=== PATIENT | male | born 1950 | race African-American/Black ===

== ENCOUNTER 2016-03-06 11:15 | Inpatient (IN) | payer OTHER ==
[2016-03-06 11:45] VITALS: BMI 18.6
--- NOTE | 2016-03-06 13:48 | HP ---
CIWA Score - CIWA Score Nausea/Vomitin-Mild Nausea/No Vomiting Muscle Tremors: 4-Moderate,w/Arms Extend Anxiety: 4-Mod. Anxious/Guarded Agitation: 4-Moderately Restless Paroxysmal Sweats: 3 Orientation: 0-Oriented Tacttile Disturbances: 0-None Auditory Disturbances: 0-None Visual Disturbances: 0-None Headache: 1-Very Mild CIWA-Ar Total Score: 17 Admission ROS BHS - HPI Chief Complaint: I need help Allergies/Adverse Reactions: Allergies Allergy/AdvReac Type Severity Reaction Status Date / Time No Known Allergies Allergy Verified 03/06/16 12:52 History of Present Illness: pt is a 65yr old male with a history of alcohol dependence seeking detox for treatment. Exam Limitations: No Limitations - Ebola screening Have you traveled outside of the country in the last 21 days: No Have you had contact with anyone from an Ebola affected area: No Have you been sick,other than usual withdrawal symptoms: No Do you have a fever: No - Review of Systems Constitutional: Chills, Diaphoresis, Loss of Appetite, Night Sweats, Changes in sleep, Unintentional Wgt. Loss EENT: reports: Tearing, Nose Congestion Respiratory: reports: Cough Cardiac: reports: Lightheadedness GI: reports: Constipated, Diarrhea, Nausea, Poor Appetite, Poor Fluid Intake, Indigestion : reports: No Symptoms Reported Musculoskeletal: reports: Back Pain, Joint Pain Integumentary: reports: Flushing, Sweating Neuro: reports: Tingling, Tremors Endocrine: reports: Excessive Sweating, Flushing, Intolerance to Cold, Intolerance to Heat Hematology: reports: No Symptoms Reported Psychiatric: reports: Judgement Intact, Mood/Affect Appropiate, Orientated x3, Agitated, Anxious Other Systems: Reviewed and Negative Patient History - Patient Medical History Hx Anemia: No Hx Asthma: No Hx Chronic Obstructive Pulmonary Disease (COPD): No Hx Cancer: No Hx Cardiac Disorders: No Hx Congestive Heart Failure: No Hx Hypertension: No Hx Hypercholesterolemia: No Hx Pacemaker: No HX Cerebrovascular Accident: No Hx Seizures: No Hx Dementia: No Hx Diabetes: No Hx Gastrointestinal Disorders: No Hx Liver Disease: No Hx Genitourinary Disorders: No Hx Sexually Transmitted Disorders: No Hx Renal Disease (ESRD): No Hx Thyroid Disease: No Hx Human Immunodeficiency Virus (HIV): No (negative) Hx Hepatitis C: No (negative) Hx Depression: Yes Hx Suicide Attempt: No Hx Bipolar Disorder: No Hx Schizophrenia: No Other Medical History: insomnia - Patient Surgical History Past Surgical History: No Hx Neurologic Surgery: No Hx Cataract Extraction: No Hx Cardiac Surgery: No Hx Lung Surgery: No Hx Breast Surgery: No Hx Breast Biopsy: No Hx Abdominal Surgery: No Hx Appendectomy: No Hx Cholecystectomy: No Hx Genitourinary Surgery: No Hx Section: No Hx Orthopedic Surgery: No Anesthesia Reaction: No - PPD History Previous Implant?: Yes (+PPD history) Documented Results: Positive w/o proof Implanted On Prior [facility] Admission?: Yes PPD to be Administered?: No - Reproductive History Patient is a Female of Child Bearing Age (11 -55 yrs old): No - Smoking Cessation Smoking history: Current every day smoker Have you smoked in the past 12 months: Yes Aproximately how many cigarettes per day: 10 Cigars Per Day: 0 Hx Chewing Tobacco Use: No Initiated information on smoking cessation: Yes 'Breaking Loose' booklet given: 03/06/16 - Substance & Tx. History Hx Alcohol Use: Yes Hx Substance Use: No Substance Use Type: Alcohol Hx Substance Use Treatment: Yes - Substances Abused Alcohol Route: Oral Frequency: Daily Amount used: 1 pint of Vodka Age of first use: 16 Date of Last Use: 03/05/16 Family Disease History - Family Disease History Family Disease History: Other: Brother (alcohol), Sister (alcohol) Admission Physical Exam BHS - Vital Signs Vital Signs: Vital Signs - 24 hr 03/06/16 11:43 Temperature 98.1 F Pulse Rate 106 H Respiratory 18 Rate Blood Pressure 129/76 - Physical General Appearance: Yes: Appropriately Dressed, Moderate Distress, Thin, Tremorous, Irritable, Sweating, Anxious HEENTM: Yes: Hearing grossly Normal, Normal Voice Respiratory: Yes: Lungs Clear, Normal Breath Sounds, No Respiratory Distress, Crackles Neck: Yes: No masses,lesions,Nodules Breast: Yes: Within Normal Limits Cardiology: Yes: Regular Rhythm, Regular Rate, S1, S2 Abdominal: Yes: Normal Bowel Sounds, Non Tender, Soft Genitourinary: Yes: Within Normal Limits Back: Yes: Normal Inspection Musculoskeletal: Yes: full range of Motion Extremities: Yes: Normal Capillary Refill, Normal Inspection, Non-Tender, Tremors Neurological: Yes: Fully Oriented, Alert, Normal Response Integumentary: Yes: Normal Color, Diaphoresis Lymphatic: Yes: Within Normal Limits - Diagnostic (1) Alcohol dependence with uncomplicated withdrawal Current Visit: Yes Status: Chronic (2) Nicotine dependence Current Visit: Yes Status: Chronic Qualifiers: Nicotine product type: cigarettes Substance use status: uncomplicated Qualified Code(s): F17.210 - Nicotine dependence, cigarettes, uncomplicated (3) Depression Current Visit: Yes Status: Suspected Qualifiers: Depression Type: dysthymia Qualified Code(s): F34.1 - Dysthymic disorder (4) Pain of right hip joint Current Visit: Yes Status: Chronic Comment: arthritis of the right hip Cleared for Admission S - Detox or Rehab [facility] Level of Care: Medically Managed Detox Regimen/Protocol: Librium S Breath Alcohol Content Breath Alcohol Content: 0 Urine Drug Screen - Results Drug Screen Negative: No Urine Drug Screen Results: BZO-Benzodiazepines
[2016-03-06] MEDS ORDERED: NICOTINE POLACRILEX 4 MG GUM BUC PRN (13:54)
[2016-03-06] MEDS ORDERED: MENTHOL/PHENOL 1 EACH UD MM PRN (13:54)
[2016-03-06] MEDS ORDERED: LOPERAMIDE HCL 2 MG CAPSULE PO PRN (13:54)
[2016-03-06] MEDS ORDERED: MAGNESIUM HYDROX 2400MG/30ML ORAL SUSPENSION 30 ML CUP PO PRN (13:54)
[2016-03-06] MEDS ORDERED: hydrOXYzine PAMOATE 50 MG CAPSULE (FP) PO PRN (13:54)
[2016-03-06] MEDS ORDERED: MAGNESIUM CITRATE 300 ML BOTTLE PO PRN (13:54)
[2016-03-06] MEDS ORDERED: chlordiazePOXIDE HCL 25 MG CAPSULE PO PRN (13:54)
[2016-03-06] MEDS ORDERED: P-EPHED 60MG/TRIPROLIDI 2.5MG TABLET PO PRN (13:54)
[2016-03-06] MEDS ORDERED: MAG HYDROX/AL HYDROX/SIMETH 30 ML UNIT-DOSE CUP PO PRN (13:54)
[2016-03-06] MEDS ORDERED: ACETAMINOPHEN 325 MG TABLET (FP) PO PRN (13:54)
[2016-03-06] MEDS ORDERED: IBUPROFEN 400 MG TABLET (FP) PO PRN (13:54)
[2016-03-06] MEDS ORDERED: guaiFENesin/D-METHORPHAN HB 10 ML UNIT-DOSE CUPS PO PRN (13:54)
[2016-03-06] MEDS ORDERED: chlordiazePOXIDE HCL 25 MG CAPSULE PO ONE (15:45)
[2016-03-06] MEDS: chlordiazePOXIDE HCL 25 MG CAPSULE PO SCH ×2 (17:04→22:33)
[2016-03-06 20:43] LABS: URINE APPEARANCE CLEAR; URINE BILIRUBIN NEGATIVE (NEGATIVE); URINE BLOOD NEGATIVE (NEGATIVE); URINE COLOR AMBER; URINE GLUCOSE (UA) NEGATIVE (NEGATIVE); URINE KETONE TRACE (NEGATIVE); URINE LEUK ESTERASE NEGATIVE (NEGATIVE); URINE NITRITE NEGATIVE (NEGATIVE); URINE UROBILINOGEN 2.0 E.U/dl E.U./dl (0.2-1.0)
[2016-03-06 20:46] LABS: URINE PROTEIN 1+ (NEGATIVE)
[2016-03-06 20:48] LABS: GRANULAR CASTS 1 /lpf; URINE HYALINE CAST 1 /lpf; URINE MUCUS RARE; URINE RBC 1 /hpf (0-3); URINE WBC 6 /hpf (3-5)
[2016-03-06] MEDS: THIAMINE HCL 100 MG TABLET (FP) PO SCH (22:33)
[2016-03-07] MEDS: chlordiazePOXIDE HCL 25 MG CAPSULE PO SCH ×4 (05:37→22:31)
--- NOTE | 2016-03-07 09:03 | CONSULT ---
[facility] Psychiatric Consult - Data Date of interview: 03/07/16 Admission source: [facility] Identifying data: New admission to [facility] for this 65 y/o AA male seeking detox treatment on for alcohol dependence.Patient is single without children,domiciled,unemployed and supported on Social Security benefits. Substance Abuse History: - Smoking Cessation. Smoking history: Current every day smoker. Have you smoked in the past 12 months: Yes. Aproximately how many cigarettes per day: 10. Cigars Per Day: 0. Hx Chewing Tobacco Use: No. Initiated information on smoking cessation: Yes. 'Breaking Loose' booklet given : 03/06/16. - Substance & Tx. History. Hx Alcohol Use: Yes. Hx Substance Use : No. Substance Use Type: Alcohol. Hx Substance Use Treatment: Yes. - Substances Abused. Alcohol. Route: Oral. Frequency: Daily. Amount used: 1 pint of Vodka. Age of first use: 16. Date of Last Use: 03/05/16. Confirmed by patient. Medical History: Patient denies medical problems.He endorses good general health. Psychiatric History: Patient denies. Physical/Sexual Abuse/Trauma History: Patient denies. Additional Comment: Urine Drug Screen Results: BZO-Benzodiazepines.Noted. Mental Status Exam - Mental Status Exam Alert and Oriented to: Time, Place, Person Cognitive Function: Good Patient Appearance: Well Groomed Mood: Hopeful, Euthymic Affect: Appropriate, Normal Range Patient Behavior: Fatigued, Appropriate, Cooperative Speech Pattern: Clear, Appropriate Voice Loudness: Normal Thought Process: Goal Oriented Thought Disorder: Not Present Hallucinations: Denies Suicidal Ideation: Denies Homicidal Ideation: Denies Insight/Judgement: Fair Sleep: Poorly, Difficulty falling asleep Appetite: Good Muscle strength/Tone: Normal Gait/Station: Normal Psychiatric Findings - Problem List (Capac 1, 2,3) (1) Alcohol dependence with uncomplicated withdrawal Current Visit: Yes Status: Acute (2) Nicotine dependence Current Visit: Yes Status: Acute Qualifiers: Nicotine product type: cigarettes Substance use status: uncomplicated Qualified Code(s): F17.210 - Nicotine dependence, cigarettes, uncomplicated (3) Pain of right hip joint Current Visit: Yes Status: Acute Comment: arthritis of the right hip - Initial Treatment Plan Initial Treatment Plan: Psychoeducation.Detoxification in progress.Insomnia is addressed with benadryl 50 mg po prn at bedtime.Side effects/benefits discussed.Patient agrees with careplan.Observation.
[2016-03-07 10:24] LABS: MCH 35.4 pg (25.7-33.7); MCHC 33.8 g/dl (32.0-35.9); MEAN CELL VOLUME 104.7 fl (80-96); MEAN PLT VOLUME 8.5 fl (7.5-11.1); PLATELET COUNT 248 K/MM3 (134-434); RDW 16.4 % (11.9-15.9); WHITE BLOOD COUNT 7.3 K/mm3 (4.0-10.0)
[2016-03-07] MEDS: PRENATAL VITAMINS W/ FOLIC ACID TABLET (FP) PO SCH (10:33)
[2016-03-07] MEDS: NICOTINE 21 MG/24 HOURS TOPICAL PATCH TD SCH (10:34)
[2016-03-07] MEDS: CYANOCOBALAMIN 1,000 MCG TABLET (FP) PO SCH (10:34)
[2016-03-07 10:53] LABS: ALBUMIN 3.8 g/dl (3.4-5.0); ALK PHOS 93 U/L (45-117); ANION GAP 9 (8-16); BILIRUBIN,TOTAL 0.6 mg/dL (0.2-1.0); CALCIUM 9.3 mg/dL (8.5-10.1); CO2 30 mmol/L (21-32); GLUCOSE,RANDOM 140 mg/dL (74-106); SGOT/AST 41 U/L (15-37); SGPT/ALT 26 U/L (12-78); TOT PROT 7.5 g/dl (6.4-8.2)
--- NOTE | 2016-03-07 11:39 | PN ---
[facility] CIWA - CIWA Score Nausea/Vomitin-No Nausea/No Vomiting Muscle Tremors: 4-Moderate,w/Arms Extend Anxiety: 4-Mod. Anxious/Guarded Agitation: 4-Moderately Restless Paroxysmal Sweats: 1-Minimal Palms Moist Orientation: 0-Oriented Tacttile Disturbances: 3-Moderate Itch/Numb/Burn Auditory Disturbances: 0-None Visual Disturbances: 0-None Headache: 0-None Present CIWA-Ar Total Score: 16 BHS Progress Note (SOAP) Subjective: ANXIETY,TREMORS,FATIGUE. Objective: 03/07/16 11:38 Vital Signs Temperature 96.8 F L 03/07/16 09:53 Pulse Rate 103 H 03/07/16 09:53 Respiratory Rate 18 03/07/16 09:53 Blood Pressure 103/72 03/07/16 09:53 O2 Sat by Pulse Oximetry (%) Laboratory Last Values WBC 7.3 K/mm3 (4.0-10.0) 03/07/16 06:00 RBC 3.63 M/mm3 (4.00-5.60) L 03/07/16 06:00 Hgb 12.8 GM/dL (11.7-16.9) 03/07/16 06:00 Hct 38.0 % (35.4-49) 03/07/16 06:00 MCV 104.7 fl (80-96) H 03/07/16 06:00 MCHC 33.8 g/dl (32.0-35.9) 03/07/16 06:00 RDW 16.4 % (11.9-15.9) H D 03/07/16 06:00 Plt Count 248 K/MM3 (134-434) 03/07/16 06:00 MPV 8.5 fl (7.5-11.1) 03/07/16 06:00 Sodium 137 mmol/L (136-145) 03/07/16 06:00 Potassium 3.4 mmol/L (3.5-5.1) L 03/07/16 06:00 Chloride 98 mmol/L (98-107) 03/07/16 06:00 Carbon Dioxide 30 mmol/L (21-32) 03/07/16 06:00 Anion Gap 9 (8-16) 03/07/16 06:00 BUN 13 mg/dL (7-18) 03/07/16 06:00 Creatinine 1.0 mg/dL (0.7-1.3) D 03/07/16 06:00 Creat Clearance w eGFR > 60 (>60) 03/07/16 06:00 Random Glucose 140 mg/dL (74-106) H D 03/07/16 06:00 Calcium 9.3 mg/dL (8.5-10.1) 03/07/16 06:00 Total Bilirubin 0.6 mg/dL (0.2-1.0) 03/07/16 06:00 AST 41 U/L (15-37) H 03/07/16 06:00 ALT 26 U/L (12-78) 03/07/16 06:00 Alkaline Phosphatase 93 U/L (45-117) 03/07/16 06:00 Total Protein 7.5 g/dl (6.4-8.2) 03/07/16 06:00 Albumin 3.8 g/dl (3.4-5.0) 03/07/16 06:00 Urine Color Tisha 03/06/16 20:00 Urine Appearance Clear 03/06/16 20:00 Urine pH 5.0 (5.0-8.0) 03/06/16 20:00 Ur Specific [place] 1.027 (1.001-1.035) 03/06/16 20:00 Urine Protein 1+ (NEGATIVE) H 03/06/16 20:00 Urine Glucose (UA) Negative (NEGATIVE) 03/06/16 20:00 Urine Ketones Trace (NEGATIVE) H 03/06/16 20:00 Urine Blood Negative (NEGATIVE) 03/06/16 20:00 Urine Nitrite Negative (NEGATIVE) 03/06/16 20:00 Urine Bilirubin Negative (NEGATIVE) 03/06/16 20:00 Urine Urobilinogen 2.0 e.u/dl E.U./dl (0.2-1.0) 03/06/16 20:00 Ur Leukocyte Esterase Negative (NEGATIVE) 03/06/16 20:00 Urine RBC 1 /hpf (0-3) 03/06/16 20:00 Urine WBC 6 /hpf (3-5) 03/06/16 20:00 Ur Epithelial Cells Rare /hpf (FEW) 03/06/16 20:00 Hyaline Casts 1 /lpf 03/06/16 20:00 Granular Casts 1 /lpf 03/06/16 20:00 Urine Mucus Rare 03/06/16 20:00 K+ = 3.4 Assessment: 03/07/16 11:38 WITHDRAWAL SX Plan: CONTINUE DETOX KDUR 20 MEQ PO DAILY X 3 DAYS
--- NOTE | 2016-03-07 12:39 | EKG ---
Test Reason : Blood Pressure : / mmHG Vent. Rate : 095 BPM Atrial Rate : 095 BPM P-R Int : 106 ms QRS Dur : 080 ms QT Int : 350 ms P-R-T Axes : 060 049 009 degrees QTc Int : 439 ms SINUS RHYTHM WITH SHORT UT NONSPECIFIC T WAVE ABNORMALITY ABNORMAL ECG WHEN COMPARED WITH ECG OF 27-AUG-2008 17:18, NONSPECIFIC T WAVE ABNORMALITY NOW EVIDENT IN INFERIOR LEADS NONSPECIFIC T WAVE ABNORMALITY NOW EVIDENT IN ANTERIOR LEADS Confirmed by SHEYLA PASTOR MD ([id number]) on 03/07/2016 12:39:49 PM Referred By: Confirmed By:SHEYLA PASTOR MD
[2016-03-07] MEDS: POTASSIUM CHLORIDE TABS 20 MEQ TABLET.ER (FP) PO SCH (12:45)
[2016-03-07] MEDS: THIAMINE HCL 100 MG TABLET (FP) PO SCH (22:31)
[2016-03-07] MEDS: diphenhydrAMINE HCL 50 MG CAPSULE PO PRN (22:31)
[2016-03-08] MEDS: chlordiazePOXIDE HCL 25 MG CAPSULE PO SCH ×2 (05:49→10:33)
[2016-03-08] MEDS: CYANOCOBALAMIN 1,000 MCG TABLET (FP) PO SCH (10:33)
[2016-03-08] MEDS: POTASSIUM CHLORIDE TABS 20 MEQ TABLET.ER (FP) PO SCH (10:33)
[2016-03-08] MEDS: PRENATAL VITAMINS W/ FOLIC ACID TABLET (FP) PO SCH (10:33)
[2016-03-08] MEDS: NICOTINE 21 MG/24 HOURS TOPICAL PATCH TD SCH (10:33)
[2016-03-08] MEDS: chlordiazePOXIDE 5 MG CAPSULE PO SCH ×2 (16:49→22:32)
--- NOTE | 2016-03-08 17:28 | PN ---
[facility] CIWA - CIWA Score Nausea/Vomitin Muscle Tremors: 3 Anxiety: 2 Agitation: 1-Slight > Activity Paroxysmal Sweats: 3 Orientation: 1-Uncertain about Date Tacttile Disturbances: 0-None Auditory Disturbances: 0-None Visual Disturbances: 0-None Headache: 0-None Present CIWA-Ar Total Score: 12 [facility] Progress Note (SOAP) Objective: 03/08/16 17:27 Laboratory Tests 03/06/16 03/07/16 03/07/16 20:00 06:00 06:00 WBC 7.3 RBC 3.63 L Hgb 12.8 Hct 38.0 MCV 104.7 H MCHC 33.8 RDW 16.4 H D Plt Count 248 MPV 8.5 Sodium 137 Potassium 3.4 L Chloride 98 Carbon Dioxide 30 Anion Gap 9 BUN 13 Creatinine 1.0 D Creat Clearance w eGFR > 60 POC Glucometer Random Glucose 140 H D Calcium 9.3 Total Bilirubin 0.6 AST 41 H ALT 26 Alkaline Phosphatase 93 Total Protein 7.5 Albumin 3.8 Urine Color Tisha Urine Appearance Clear Urine pH 5.0 Ur Specific [place] 1.027 Urine Protein 1+ H Urine Glucose (UA) Negative Urine Ketones Trace H Urine Blood Negative Urine Nitrite Negative Urine Bilirubin Negative Urine Urobilinogen 2.0 e.u/dl Ur Leukocyte Esterase Negative Urine RBC 1 Urine WBC 6 Ur Epithelial Cells Rare Hyaline Casts 1 Granular Casts 1 Urine Mucus Rare RPR Titer 03/07/16 03/08/16 06:00 16:44 WBC RBC Hgb Hct MCV MCHC RDW Plt Count MPV Sodium Potassium Chloride Carbon Dioxide Anion Gap BUN Creatinine Creat Clearance w eGFR POC Glucometer 130 Random Glucose Calcium Total Bilirubin AST ALT Alkaline Phosphatase Total Protein Albumin Urine Color Urine Appearance Urine pH Ur Specific [place] Urine Protein Urine Glucose (UA) Urine Ketones Urine Blood Urine Nitrite Urine Bilirubin Urine Urobilinogen Ur Leukocyte Esterase Urine RBC Urine WBC Ur Epithelial Cells Hyaline Casts Granular Casts Urine Mucus RPR Titer Nonreactive Vital Signs - 24 hr 03/07/16 03/07/16 03/08/16 17:52 22:19 00:30 Temperature 96.7 F L 97.2 F L Pulse Rate 77 89 Respiratory 16 19 18 Rate Blood Pressure 100/67 103/73 03/08/16 03/08/16 03/08/16 03:30 06:44 09:49 Temperature 97.0 F L 96.3 F L Pulse Rate 85 85 91 H Respiratory 18 18 16 Rate Blood Pressure 123/87 118/83 03/08/16 14:32 Temperature 95.6 F L Pulse Rate 87 Respiratory 18 Rate Blood Pressure 117/77 Assessment: 03/08/16 17:28 ongoing withdrawal Plan: continue detox protocol
[2016-03-08] MEDS: THIAMINE HCL 100 MG TABLET (FP) PO SCH (22:32)
[2016-03-08] MEDS: diphenhydrAMINE HCL 50 MG CAPSULE PO PRN (22:32)
[2016-03-09] MEDS: chlordiazePOXIDE 5 MG CAPSULE PO SCH ×2 (05:32→10:51)
[2016-03-09] MEDS: POTASSIUM CHLORIDE TABS 20 MEQ TABLET.ER (FP) PO SCH (10:50)
[2016-03-09] MEDS: PRENATAL VITAMINS W/ FOLIC ACID TABLET (FP) PO SCH (10:51)
[2016-03-09] MEDS: NICOTINE 21 MG/24 HOURS TOPICAL PATCH TD SCH (10:51)
[2016-03-09] MEDS: CYANOCOBALAMIN 1,000 MCG TABLET (FP) PO SCH (10:53)
[2016-03-09 13:38] LABS: URINE APPEARANCE CLEAR; URINE BILIRUBIN NEGATIVE (NEGATIVE); URINE BLOOD NEGATIVE (NEGATIVE); URINE COLOR LTYELLOW; URINE GLUCOSE (UA) NEGATIVE (NEGATIVE); URINE KETONE NEGATIVE (NEGATIVE); URINE LEUK ESTERASE NEGATIVE (NEGATIVE); URINE NITRITE NEGATIVE (NEGATIVE); URINE PROTEIN NEGATIVE (NEGATIVE); URINE UROBILINOGEN NEGATIVE E.U./dl (0.2-1.0)
--- NOTE | 2016-03-09 16:27 | PN ---
[facility] Progress Note (SOAP) Subjective: Anxious, sweating, restless Objective: 03/09/16 16:24 Last Vital Signs Temp Pulse Resp BP Pulse Ox 96.5 F L 93 H 18 135/90 03/09/16 13:48 03/09/16 13:48 03/09/16 13:48 03/09/16 13:48 Laboratory Tests 03/06/16 03/07/16 03/07/16 20:00 06:00 06:00 WBC 7.3 RBC 3.63 L Hgb 12.8 Hct 38.0 MCV 104.7 H MCHC 33.8 RDW 16.4 H D Plt Count 248 MPV 8.5 Sodium 137 Potassium 3.4 L Chloride 98 Carbon Dioxide 30 Anion Gap 9 BUN 13 Creatinine 1.0 D Creat Clearance w eGFR > 60 POC Glucometer Random Glucose 140 H D Calcium 9.3 Total Bilirubin 0.6 AST 41 H ALT 26 Alkaline Phosphatase 93 Total Protein 7.5 Albumin 3.8 Urine Color Tisha Urine Appearance Clear Urine pH 5.0 Ur Specific [place] 1.027 Urine Protein 1+ H Urine Glucose (UA) Negative Urine Ketones Trace H Urine Blood Negative Urine Nitrite Negative Urine Bilirubin Negative Urine Urobilinogen 2.0 e.u/dl Ur Leukocyte Esterase Negative Urine RBC 1 Urine WBC 6 Ur Epithelial Cells Rare Hyaline Casts 1 Granular Casts 1 Urine Mucus Rare RPR Titer 03/07/16 03/08/16 03/09/16 06:00 16:44 05:34 WBC RBC Hgb Hct MCV MCHC RDW Plt Count MPV Sodium Potassium Chloride Carbon Dioxide Anion Gap BUN Creatinine Creat Clearance w eGFR POC Glucometer 130 97 Random Glucose Calcium Total Bilirubin AST ALT Alkaline Phosphatase Total Protein Albumin Urine Color Urine Appearance Urine pH Ur Specific [place] Urine Protein Urine Glucose (UA) Urine Ketones Urine Blood Urine Nitrite Urine Bilirubin Urine Urobilinogen Ur Leukocyte Esterase Urine RBC Urine WBC Ur Epithelial Cells Hyaline Casts Granular Casts Urine Mucus RPR Titer Nonreactive 03/09/16 10:59 WBC RBC Hgb Hct MCV MCHC RDW Plt Count MPV Sodium Potassium Chloride Carbon Dioxide Anion Gap BUN Creatinine Creat Clearance w eGFR POC Glucometer Random Glucose Calcium Total Bilirubin AST ALT Alkaline Phosphatase Total Protein Albumin Urine Color Ltyellow Urine Appearance Clear Urine pH 7.0 D Ur Specific [place] 1.017 Urine Protein Negative Urine Glucose (UA) Negative Urine Ketones Negative Urine Blood Negative Urine Nitrite Negative Urine Bilirubin Negative Urine Urobilinogen Negative Ur Leukocyte Esterase Negative Urine RBC Urine WBC Ur Epithelial Cells Hyaline Casts Granular Casts Urine Mucus RPR Titer Labs noted: K 3.4; UA 1+ protein Assessment: 03/09/16 16:25 Withdrawal symptoms Noted with hypokalemia and proteinuria Plan: Continue detox Hypokalemia: continue K DUR Proteinuria: encouraged to drink more water, repeat UA
[2016-03-09] MEDS: chlordiazePOXIDE HCL 10 MG CAPSULE PO SCH ×2 (17:21→22:30)
[2016-03-09] MEDS: THIAMINE HCL 100 MG TABLET (FP) PO SCH (22:30)
[2016-03-10] MEDS: chlordiazePOXIDE HCL 10 MG CAPSULE PO SCH (05:43)
[2016-03-10 06:50] VITALS: BP 133/86; PULSE 95; TEMP 98.1
[2016-03-10] MEDS: PRENATAL VITAMINS W/ FOLIC ACID TABLET (FP) PO SCH (09:22)
[2016-03-10] MEDS: POTASSIUM CHLORIDE TABS 20 MEQ TABLET.ER (FP) PO SCH (09:22)
[2016-03-10] MEDS: NICOTINE 21 MG/24 HOURS TOPICAL PATCH TD SCH (09:23)
[2016-03-10] MEDS: CYANOCOBALAMIN 1,000 MCG TABLET (FP) PO SCH (09:23)
--- NOTE | 2016-03-10 10:47 | DS ---
[facility] Detox Discharge Summary Admission Date: 03/06/16 Discharge Date: 03/10/16 - History Present History: Alcohol Dependence Pertinent Past History: Arthritis Right Hip - Physical Exam Results Vital Signs: Vital Signs Temperature 98.1 F 03/10/16 06:47 Pulse Rate 95 H 03/10/16 06:47 Respiratory Rate 18 03/10/16 06:47 Blood Pressure 133/86 03/10/16 06:47 O2 Sat by Pulse Oximetry (%) Laboratory Last Values WBC 7.3 K/mm3 (4.0-10.0) 03/07/16 06:00 RBC 3.63 M/mm3 (4.00-5.60) L 03/07/16 06:00 Hgb 12.8 GM/dL (11.7-16.9) 03/07/16 06:00 Hct 38.0 % (35.4-49) 03/07/16 06:00 MCV 104.7 fl (80-96) H 03/07/16 06:00 MCHC 33.8 g/dl (32.0-35.9) 03/07/16 06:00 RDW 16.4 % (11.9-15.9) H D 03/07/16 06:00 Plt Count 248 K/MM3 (134-434) 03/07/16 06:00 MPV 8.5 fl (7.5-11.1) 03/07/16 06:00 Sodium 137 mmol/L (136-145) 03/07/16 06:00 Potassium 3.4 mmol/L (3.5-5.1) L 03/07/16 06:00 Chloride 98 mmol/L (98-107) 03/07/16 06:00 Carbon Dioxide 30 mmol/L (21-32) 03/07/16 06:00 Anion Gap 9 (8-16) 03/07/16 06:00 BUN 13 mg/dL (7-18) 03/07/16 06:00 Creatinine 1.0 mg/dL (0.7-1.3) D 03/07/16 06:00 Creat Clearance w eGFR > 60 (>60) 03/07/16 06:00 POC Glucometer 106 UNITS (()) 03/10/16 05:45 Random Glucose 140 mg/dL (74-106) H D 03/07/16 06:00 Calcium 9.3 mg/dL (8.5-10.1) 03/07/16 06:00 Total Bilirubin 0.6 mg/dL (0.2-1.0) 03/07/16 06:00 AST 41 U/L (15-37) H 03/07/16 06:00 ALT 26 U/L (12-78) 03/07/16 06:00 Alkaline Phosphatase 93 U/L (45-117) 03/07/16 06:00 Total Protein 7.5 g/dl (6.4-8.2) 03/07/16 06:00 Albumin 3.8 g/dl (3.4-5.0) 03/07/16 06:00 Urine Color L[place]ellow 03/09/16 10:59 Urine Appearance Clear 03/09/16 10:59 Urine pH 7.0 (5.0-8.0) D 03/09/16 10:59 Ur Specific [place] 1.017 (1.001-1.035) 03/09/16 10:59 Urine Protein Negative (NEGATIVE) 03/09/16 10:59 Urine Glucose (UA) Negative (NEGATIVE) 03/09/16 10:59 Urine Ketones Negative (NEGATIVE) 03/09/16 10:59 Urine Blood Negative (NEGATIVE) 03/09/16 10:59 Urine Nitrite Negative (NEGATIVE) 03/09/16 10:59 Urine Bilirubin Negative (NEGATIVE) 03/09/16 10:59 Urine Urobilinogen Negative E.U./dl (0.2-1.0) 03/09/16 10:59 Ur Leukocyte Esterase Negative (NEGATIVE) 03/09/16 10:59 Urine RBC 1 /hpf (0-3) 03/06/16 20:00 Urine WBC 6 /hpf (3-5) 03/06/16 20:00 Ur Epithelial Cells Rare /hpf (FEW) 03/06/16 20:00 Hyaline Casts 1 /lpf 03/06/16 20:00 Granular Casts 1 /lpf 03/06/16 20:00 Urine Mucus Rare 03/06/16 20:00 RPR Titer Nonreactive (NONREACTIVE) 03/07/16 06:00 labs noted Pertinent Admission Physical Exam Findings: withdrawal symptoms - Treatment Hospital Course: Detox Protocol Followed, Detoxed Safely, Responded well, Discharged Condition Good - Medication Discharge Medications: Ambulatory Orders Cyanocobalamin (Vitamin B-12) [Vitamin B-12] 1,000 mcg PO DAILY 03/06/16 Ergocalciferol [Drisdol -] 50,000 unit PO WEEKLY 03/06/16 - Diagnosis (1) Alcohol dependence with uncomplicated withdrawal Current Visit: Yes Status: Acute (2) Nicotine dependence Current Visit: Yes Status: Acute Qualifiers: Nicotine product type: cigarettes Substance use status: uncomplicated Qualified Code(s): F17.210 - Nicotine dependence, cigarettes, uncomplicated (3) Pain of right hip joint Current Visit: Yes Status: Acute - AMA Did Patient Leave Against Medical Advice: No
== END 2016-03-10 10:00 | disposition home or self-care (01) | DRG 775 ==
LOC: YASAS 11:15 → Y3N 15:34
PROVIDERS: ADMIT Internal Medicine; ATTEND Internal Medicine
PROC: HZ2ZZZZ Detoxification Services for Substance Abuse Treatment (ICD-10-PCS; principal; 2016-03-06)
DX: F10.230 Alcohol dependence with withdrawal, uncomplicated (principal); F17.210 Nicotine dependence, cigarettes, uncomplicated; F34.1 Dysthymic disorder; E87.6 Hypokalemia; R80.9 Proteinuria, unspecified; G47.00 Insomnia, unspecified; M25.551 Pain in right hip
CPT/HCPCS: 36415; 71020-TC; 80053; 81003; 81015; 85027; 86593; 93005; 93010